=== PATIENT | female | born 1945 | race Caucasian/White ===

== ENCOUNTER 2018-12-16 15:39 | Emergency (ER) | payer MEDICARE, OTHER ==
[~2018-12-16] VITALS: Ht 157.5 cm; Wt 78.5 kg
[2018-12-16] MEDS ORDERED: LIPITOR20 MG PO (16:14)
[2018-12-16] MEDS ORDERED: ASPIR-LOW81 MG PO (16:17)
[2018-12-16] MEDS ORDERED: CYCLOBENZAPRINE5 MG PO (16:18)
== END 2018-12-16 17:59 | disposition home or self-care (01) ==
LOC: ED 15:39
DX: S29.012A Strain of muscle and tendon of back wall of thorax, initial encounter (principal); I10 Essential (primary) hypertension; Z85.3 Personal history of malignant neoplasm of breast; Z91.048 Other nonmedicinal substance allergy status; X50.1XXA Overexertion from prolonged static or awkward postures, initial encounter
CPT/HCPCS: 71045; 99283-25